=== PATIENT | female | born 1950 | race Caucasian/White ===

== ENCOUNTER 2016-05-22 09:00 | Outpatient (RCR) | payer BC ==
[~2016-05-22 09:00] MED LIST: IMITREX50 MG PO; NORCO 325 MG-7.1 TAB PO; PERCOCET 325 MG1 TA2 PO; PREMARIN 0.60.625 M1 PO; ULTRAM 50MG TAB50 MG PO
== END 2016-06-04 | disposition home or self-care (01) ==
LOC: WSPT
DX: I89.0 Lymphedema, not elsewhere classified (principal)

== ENCOUNTER 2016-09-04 09:00 | Outpatient (RCR) | payer BC | END 2016-09-10 | disposition still patient (30) | LOC: WSPT | DX: I89.0 Lymphedema, not elsewhere classified (principal) ==

== ENCOUNTER 2016-11-27 09:00 | Outpatient (RCR) | payer BC | END 2016-12-10 | LOC: WSPT | DX: I89.0 Lymphedema, not elsewhere classified (principal) ==

== ENCOUNTER 2017-03-12 09:00 | Outpatient (RCR) | payer BC | END 2017-03-25 | disposition still patient (30) | LOC: WSPT | DX: I89.0 Lymphedema, not elsewhere classified (principal) ==

== ENCOUNTER 2017-06-04 09:30 | Outpatient (RCR) | payer BC | END 2017-06-24 | LOC: WSPT | DX: M79.605 Pain in left leg (principal); M25.552 Pain in left hip ==

== ENCOUNTER → 2017-10-14 | Outpatient (RCR) | payer BC | END | disposition home or self-care (01) | LOC: WSPT | DX: I89.0 Lymphedema, not elsewhere classified (principal); M79.605 Pain in left leg; M25.552 Pain in left hip ==

== ENCOUNTER 2018-01-21 09:00 | Outpatient (RCR) | payer BC | END 2018-01-27 | disposition home or self-care (01) | LOC: WSPT | DX: M25.552 Pain in left hip (principal); M79.605 Pain in left leg ==

== ENCOUNTER 2018-04-22 09:00 | Outpatient (RCR) | payer BC | END 2018-04-28 | disposition still patient (30) | LOC: WSPT | DX: M79.605 Pain in left leg (principal); M25.552 Pain in left hip ==

== ENCOUNTER 2018-07-22 08:30 | Outpatient (RCR) | payer BC | END 2018-07-28 | disposition home or self-care (01) | LOC: WSPT | DX: M79.605 Pain in left leg (principal); M25.552 Pain in left hip ==

== ENCOUNTER 2018-10-07 09:00 | Outpatient (RCR) | payer BC | END 2018-11-03 | disposition still patient (30) | LOC: WSPT | DX: M79.605 Pain in left leg (principal); M25.552 Pain in left hip ==

== ENCOUNTER 2019-01-27 09:00 | Outpatient (RCR) | payer BC | END 2019-02-16 | disposition home or self-care (01) | LOC: WSPT | DX: I89.0 Lymphedema, not elsewhere classified (principal) ==

== ENCOUNTER → 2019-04-20 | Outpatient (CLI) | payer BC | LOC: WSPT 04-14 08:30 → WSC 04-14 08:30 → MC.RAD 07:45 | DX: Z12.31 Encounter for screening mammogram for malignant neoplasm of breast (principal) ==

== ENCOUNTER → 2021-09-03 | Outpatient (CLI) | payer BC, MEDICARE | LOC: MC.RAD 13:45 | DX: Z12.31 Encounter for screening mammogram for malignant neoplasm of breast (principal) ==